=== PATIENT | female | born 1935 | race Caucasian/White ===

== ENCOUNTER 2021-05-28 08:05 | Day surgery (SDC) | payer MEDICARE, BC ==
[2021-05-28] VITALS (8 sets, daily range): BP systolic 135–169; BP diastolic 38–73
[~2021-05-28] VITALS: Ht 167.6 cm; Wt 62.9 kg
[2021-05-28] MEDS ORDERED: vancomycin/NS 1 GM ADD-VANTAGE 250 ML X 1 DOSE IV ONE (08:40)
[2021-05-28] MEDS ORDERED: cefazolin/dext.iso 2gm/50ml 50 ML IV ONE (08:40)
[2021-05-28] MEDS ORDERED: iodine PO (09:02)
[2021-05-28] MEDS ORDERED: copper PO (09:02)
[2021-05-28] MEDS ORDERED: magnesium PO (09:02)
[2021-05-28] MEDS ORDERED: [UNRECOGNIZED DRUG - OTHER] PO (09:02)
[2021-05-28] MEDS ORDERED: COD1CAPS15 PO (09:02)
[2021-05-28] MEDS ORDERED: zinc PO (09:02)
[2021-05-28] MEDS ORDERED: LACT1CAP65 PO (09:02)
[2021-05-28] MEDS ORDERED: POTA-192 PO (09:02)
[2021-05-28] MEDS ORDERED: PUMPKIN SEED PO (09:02)
[2021-05-28] MEDS ORDERED: CALCIFOOD PO (09:02)
[2021-05-28] MEDS ORDERED: niacin PO (09:02)
[2021-05-28] MEDS ORDERED: chromium PO (09:02)
[2021-05-28] MEDS ORDERED: LEVO75TA7 PO (09:02)
[2021-05-28 09:19] LABS: BASOPHILS # (AUTO) 0.1 X10'3 (0-0.2); EOSINOPHILS # (AUTO) 0.3 X10'3 (0-0.9); EOSINOPHILS % (AUTO) 4.8 % (0-6); HEMATOCRIT 43.2 % (35.0-45.0); HEMOGLOBIN 14.6 g/dl (12.0-16.0); LYMPHOCYTES # (AUTO) 1.1 X10'3 (1.1-4.8); LYMPHOCYTES % (AUTO) 16.9 % (21-51); MEAN CORPUSCULAR HEMOGLOBIN 29.3 PG (27.0-31.0); MEAN CORPUSCULAR HGB CONC 33.9 g/dL (33.0-36.5); MEAN CORPUSCULAR VOLUME 86.6 FL (78-98); MONOCYTES # (AUTO) 0.6 X10'3 (0-0.9); MONOCYTES % (AUTO) 9.1 % (2-12); NEUTROPHILS # (AUTO) 4.4 X10'3 (1.8-7.7); NEUTROPHILS % (AUTO) 68.2 % (42-75); PLATELET COUNT 312 X10'3 (140-440); RED BLOOD COUNT 4.99 X10'6 (4.20-5.60); WHITE BLOOD COUNT 6.4 X10'3 (4.5-11.0)
[2021-05-28 09:28] LABS: ALBUMIN 3.8 G/DL (3.4-5.0); ANION GAP 11 (8-16); BLOOD UREA NITROGEN 17 MG/DL (7-18); BUN/CREATININE RATIO 22.7 (6.6-38.0); CALCIUM 9.9 MG/DL (8.5-10.1); CHLORIDE 101 MMOL/L (99-107); CREATININE 0.75 MG/DL (0.40-0.90); GLUCOSE 105 MG/DL (70-104); MAGNESIUM 2.4 MG/DL (1.5-2.4); POTASSIUM 4.5 MMOL/L (3.5-5.1); SODIUM 137 MMOL/L (135-145); TOTAL CARBON DIOXIDE 25.2 MMOL/L (24-32); eGFR 73 ML/MIN
[2021-05-28] MEDS ORDERED: midazolam 1 mg/ML 2ml injection ONE ×2 (10:12→11:40)
[2021-05-28] MEDS ORDERED: fentaNYL/PF 50MCG/1 ML 2ML syringe ONE (10:13)
[2021-05-28] MEDS ORDERED: ceFAZolin 1000mg inj ONE (10:13)
[2021-05-28] MEDS ORDERED: LIDOcaine 1% w/EPI 1:100,000 30ml vial (MDV) ONE (10:14)
[2021-05-28] MEDS ORDERED: hydrALAZINE 20mg/ml inj. IV ONE (11:57)
[2021-05-28] MEDS ORDERED: HYDROcodone/acetaminophen 5mg/325mg tablet PO PRN (12:35)
[2021-05-28] MEDS ORDERED: HYDROcodone/acetaminophen 10/325mg tab PO PRN (12:35)
[2021-05-28] MEDS ORDERED: normal saline 1000ml 1,000 ML IV SCH (13:15)
== END 2021-05-28 14:37 | disposition home or self-care (01) ==
LOC: SSTAY O 08:05
PROVIDERS: ATTEND Internal Medicine Cardiovascular Disease
DX: Z45.010 Encounter for checking and testing of cardiac pacemaker pulse generator [battery] (principal); Z95.1 Presence of aortocoronary bypass graft; Z79.01 Long term (current) use of anticoagulants; Z79.899 Other long term (current) drug therapy
CPT/HCPCS: 33228; 36415; 80048; 83735; 85025; 85610; 93005; 99152; 99153; C1785; J0360; J0690; J2250; J3010; J3490; A4620; A6258

== ENCOUNTER 2024-02-07 09:53 | Outpatient (CLI) | payer MEDICARE, BC ==
[~2024-02-07 09:53] MED LIST: CALCIFOOD PO; COD1CAPS16 PO; LACT1CAP65 PO; LEVO75TA7 PO; POTA-192 PO; PUMPKIN SEED PO; [UNRECOGNIZED DRUG - OTHER] PO; chromium PO; copper PO; iodine PO; magnesium PO; niacin PO; zinc PO
== END 2024-02-07 23:59 | disposition home or self-care (01) ==
LOC: VAS 09:53
PROVIDERS: ATTEND Orthopaedic Surgery
DX: I65.22 Occlusion and stenosis of left carotid artery (principal); I70.212 Atherosclerosis of native arteries of extremities with intermittent claudication, left leg
CPT/HCPCS: 93922; 93925

== ENCOUNTER 2024-07-15 09:35 | Day surgery (SDC) | payer MEDICARE, BC ==
[~2024-07-15] VITALS: Ht 167.6 cm; Wt 67.1 kg
[2024-07-15] VITALS (16 sets, daily range): BP systolic 112–175; BP diastolic 37–70; PULSE 59–76; RESP 11–17; TEMP 96.7–98; O2SAT 94–99
[2024-07-15] MEDS ORDERED: sodium bicarbonate 1meq/ml syr 150 ML in dextrose 5%-water 1,000 ML IV ONE (10:00)
[2024-07-15] MEDS ORDERED: SPIR50TA5 PO (10:14)
[2024-07-15 10:23] LABS: BASOPHILS # (AUTO) 0.1 X10'3 (0-0.2); BASOPHILS % (AUTO) 0.7 % (0-1); EOSINOPHILS # (AUTO) 0.1 X10'3 (0-0.9); EOSINOPHILS % (AUTO) 0.9 % (0-6); HEMATOCRIT 43.7 % (35.0-45.0); HEMOGLOBIN 14.6 g/dl (12.0-16.0); LYMPHOCYTES # (AUTO) 0.9 X10'3 (1.1-4.8); LYMPHOCYTES % (AUTO) 7.4 % (21-51); MEAN CORPUSCULAR HEMOGLOBIN 29.9 PG (27.0-31.0); MEAN CORPUSCULAR HGB CONC 33.4 g/dL (33.0-36.5); MEAN CORPUSCULAR VOLUME 89.6 FL (78-98); MEAN PLATELET VOLUME 8.3 FL (7.4-10.4); MONOCYTES # (AUTO) 1.1 X10'3 (0-0.9); NEUTROPHILS # (AUTO) 10.3 X10'3 (1.8-7.7); PLATELET COUNT 321 X10'3 (140-440); RED BLOOD COUNT 4.88 X10'6 (4.20-5.60); RED CELL DISTRIBUTION WIDTH 13.2 % (11.5-14.5); WHITE BLOOD COUNT 12.5 X10'3 (4.5-11.0)
[2024-07-15 10:35] LABS: PROTHROMBIN TIME 10.3 SECONDS (9.0-12.0)
[2024-07-15] MEDS: sodium bicarbonate 1meq/ml syr 150 ML in dextrose 5%-water 1,000 ML IV ONE (10:35)
[2024-07-15] MEDS: normal saline 1,000 ML IV SCH (10:36)
[2024-07-15] MEDS: diphenhydrAMINE 25mg capsule PO PRN (10:36)
[2024-07-15 10:37] LABS: ALBUMIN 3.6 G/DL (3.4-5.0); ANION GAP 11 (8-16); BLOOD UREA NITROGEN 21 MG/DL (7-18); BUN/CREATININE RATIO 25.9 (10.0-20.0); CALCIUM 9.6 MG/DL (8.5-10.1); CHLORIDE 97 MMOL/L (99-107); CREATININE 0.81 MG/DL (0.40-0.90); GLUCOSE 117 MG/DL (70-104); MAGNESIUM 2.1 MG/DL (1.5-2.4); POTASSIUM 4.3 MMOL/L (3.5-5.1); SODIUM 135 MMOL/L (135-145); TOTAL CARBON DIOXIDE 27.3 MMOL/L (24-32); eCRCL 45 ML/MIN; eGFR 67 ML/MIN
[2024-07-15] MEDS ORDERED: heparin 1,000unit/ml 10ml vial 10 ML ONE (11:18)
[2024-07-15] MEDS ORDERED: LIDOcaine 1% 30ml preserv. free vial ONE (11:18)
[2024-07-15] MEDS ORDERED: iohexol 350MG/ML 100ml bottle IV ONE (11:18)
[2024-07-15] MEDS ORDERED: fentaNYL/PF 50MCG/1 ML 2ML syringe ONE ×2 (11:52→13:12)
[2024-07-15] MEDS ORDERED: midazolam 1 mg/ML 2ml injection ONE ×3 (11:52→13:27)
[2024-07-15] MEDS ORDERED: protamine sulfate 10mg/ml inj. ONE (13:51)
[2024-07-15] MEDS ORDERED: normal saline 1000ml 1,000 ML IV SCH (15:00)
[2024-07-15] MEDS ORDERED: ondansetron/PF 4mg/2ml inj IV PRN (15:00)
[2024-07-15] MEDS ORDERED: proCHLORperazine 10 MG/2 ml inj IV PRN (15:00)
[2024-07-15] MEDS ORDERED: HYDROcodone/acetaminophen 10/325mg tab PO PRN (15:00)
[2024-07-15] MEDS ORDERED: CLOP-32 PO (15:20)
[2024-07-15] MEDS ORDERED: ATOR40TA PO (15:21)
[2024-07-15] MEDS ORDERED: sodium bicarbonate (8.4%) inj. 50 MEQ in sodium chloride 0.45% 1,000 ML IV SCH (18:50)
[2024-07-15] MEDS: HYDROcodone/acetaminophen 5mg/325mg tablet PO PRN (22:10)
[2024-07-16] VITALS: BP 138/45; PULSE 61
[2024-07-16 02:00] VITALS: BP 148/44; PULSE 62; RESP 17; TEMP 97.8; O2SAT 96
[2024-07-16 07:00] VITALS: BP 155/37; PULSE 60; RESP 13; TEMP 96.9; O2SAT 96
[2024-07-16] MEDS ORDERED: spironolactone 25 MG tablet PO SCH (08:00)
[2024-07-16] MEDS: atorvastatin 20mg tablet PO SCH (08:00)
[2024-07-16] MEDS: potassium chloride 10mEq ER tablet PO SCH (08:04)
[2024-07-16] MEDS: clopidogrel 75mg tablet PO SCH (08:05)
[2024-07-16] MEDS: levoTHYROXINE 75mcg tablet PO SCH (08:05)
[2024-07-16] MEDS: lactobacillus rhamnosus 10,000 MMU CELLS/CAPSULE PO SCH (08:05)
[2024-07-16 11:00] VITALS: BP 135/48; PULSE 60; RESP 16; TEMP 97.6; O2SAT 95
== END 2024-07-16 14:41 | disposition home or self-care (01) ==
LOC: SSTAY O 09:35 → PCU 3S 16:48 → SSTAY O 07-16 14:41
PROVIDERS: ATTEND Internal Medicine Cardiovascular Disease
DX: I70.293 Other atherosclerosis of native arteries of extremities, bilateral legs (principal); I25.10 Atherosclerotic heart disease of native coronary artery without angina pectoris; I10 Essential (primary) hypertension; Z79.899 Other long term (current) drug therapy; E78.5 Hyperlipidemia, unspecified
CPT/HCPCS: 36415; 37221; 37226; 75716; 80048; 83735; 85025; 85610; 93005; 99152; 99153; A6258; C1725; C1760; C1769; C1874; C1876; C1894; C2623; J1644; J2003; J2250; J2720; J3010; J3490; J7030; J7070; Q0163; Q9967; Z7610; 36246; 76937; G0378